=== PATIENT | male | born 1955 | race African-American/Black ===

== ENCOUNTER 2017-07-06 15:48 | Inpatient (IN) | payer OTHER ==
[2017-07-06 17:51] VITALS: BMI 24.3
--- NOTE | 2017-07-06 21:19 | HP ---
Admission [facility] Chief Complaint: I WANT TO GO TO REHAB Allergies/Adverse Reactions: Allergies Allergy/AdvReac Type Severity Reaction Status Date / Time No Known Allergies Allergy Verified 07/06/17 21:10 History of Present Illness: 62 YEARS OLD MALE WITH LONG HISTORY OF OPIATE COCAINE DEPENDENCE HAS HISTORY OF LIVER CANCER, SURGICALLY REMOVED 2010 = REMISSION, HIV BROUGHT MEDS ALONG, HYPERTENSION BPH GERD AND DEPRESSION IS ADMITTED TO REHAB Exam Limitations: No Limitations - Ebola screening Have you traveled outside of the country in the last 21 days: No Have you had contact with anyone from an Ebola affected area: No Have you been sick,other than usual withdrawal symptoms: No Do you have a fever: No - Review of Systems Constitutional: Loss of Appetite, Unintentional Wgt. Loss, Unexplained wgt Loss EENT: reports: Hearing Loss (RIGHT EAR), Dental Problems (UPPER AND LOWER) Respiratory: reports: SOB with Exertion Cardiac: reports: No Symptoms Reported GI: reports: Poor Appetite : reports: Urgency Musculoskeletal: reports: Muscle Pain Integumentary: reports: No Symptoms Reported Neuro: reports: No Symptoms reported Endocrine: reports: No Symptoms Reported Hematology: reports: No Symptoms Reported Psychiatric: reports: Judgement Intact, Mood/Affect Appropiate, Orientated x3 Other Systems: Reviewed and Negative Patient History - Patient Medical History Hx Anemia: No Hx Asthma: No Hx Chronic Obstructive Pulmonary Disease (COPD): No Hx Cancer: Yes (LIVER) Hx Cardiac Disorders: No Hx Congestive Heart Failure: No Hx Hypertension: Yes Hx Hypercholesterolemia: No Hx Pacemaker: No HX Cerebrovascular Accident: No Hx Seizures: No Hx Dementia: No Hx Diabetes: No Hx Gastrointestinal Disorders: Yes Hx Liver Disease: Yes (HISTORY OF LIVER CA) Hx Genitourinary Disorders: Yes Hx Sexually Transmitted Disorders: Yes Hx Renal Disease (ESRD): No Hx Thyroid Disease: No Hx Human Immunodeficiency Virus (HIV): Yes Hx Hepatitis C: No Hx Depression: Yes Hx Suicide Attempt: No Hx Bipolar Disorder: No Hx Schizophrenia: No - Patient Surgical History Past Surgical History: Yes Hx Neurologic Surgery: No Hx Cataract Extraction: No Hx Cardiac Surgery: No Hx Lung Surgery: No Hx Breast Surgery: No Hx Breast Biopsy: No Hx Abdominal Surgery: Yes (LIVER CA) Hx Appendectomy: No Hx Cholecystectomy: No Hx Genitourinary Surgery: No Hx Orthopedic Surgery: No Anesthesia Reaction: No - PPD History Previous Implant?: Yes Documented Results: Negative w/proof Implanted On Prior [facility] Admission?: No PPD to be Administered?: Yes - Smoking Cessation Smoking history: Never smoked Have you smoked in the past 12 months: No Cigars Per Day: 0 Hx Chewing Tobacco Use: No Initiated information on smoking cessation: No - Substance & Tx. History Hx Alcohol Use: No Hx Substance Use: Yes Substance Use Type: Cocaine, Heroin Hx Substance Use Treatment: Yes (06/2017 [facility]) - Substances Abused Heroin Route: Smoking Frequency: Daily Amount used: 4 BAGS Age of first use: 61 Date of Last Use: 06/30/17 Family Disease History - Family Disease History Family Disease History: CA: Mother (), Other: Father (NO CONTACT), Mother Other Family History: ONLY CHILD Admission Physical Exam S - Vital Signs Vital Signs: Vital Signs - 24 hr 07/06/17 17:49 Temperature 97.7 F Pulse Rate 80 Respiratory 18 Rate Blood Pressure 118/74 - Physical General Appearance: Yes: No Apparent Distress, Appropriately Dressed, Thin HEENTM: Yes: Hearing grossly Normal, Normal ENT Inspection, Normocephalic, Normal Voice, Other (RIGHT EAR HARD OF HEARING) Respiratory: Yes: Chest Non-Tender, No Respiratory Distress, No Accessory Muscle Use Neck: Yes: Supple, Trachea in good position Breast: Yes: Breasts Symetrical Cardiology: Yes: Regular Rhythm, Regular Rate, S1, S2 Abdominal: Yes: Normal Bowel Sounds, Non Tender, Soft Genitourinary: Yes: Within Normal Limits Back: Yes: Normal Inspection Musculoskeletal: Yes: full range of Motion, Gait Steady Neurological: Yes: Fully Oriented, Alert, Motor Strength 5/5, Normal Mood/Affect , Normal Response Integumentary: Yes: Warm Lymphatic: Yes: Within Normal Limits - Diagnostic (1) Opioid dependence with withdrawal Current Visit: Yes Status: Acute (2) HIV (human immunodeficiency virus infection) Current Visit: Yes Status: Chronic (3) Hypertension Current Visit: Yes Status: Chronic Qualifiers: Hypertension type: essential hypertension Qualified Code(s): I10 - Essential (primary) hypertension; I10 - Essential (primary) hypertension; I10 - Essential (primary) hypertension (4) BPH (benign prostatic hyperplasia) Current Visit: Yes Status: Chronic Qualifiers: Lower urinary tract symptom presence: symptoms present Lower urinary tract symptom detail: post-void dribbling Qualified Code(s): N40.1 - Benign prostatic hyperplasia with lower urinary tract symptoms; N40.1 - Benign prostatic hyperplasia with lower urinary tract symptoms; N39.43 - Post-void dribbling; N39.43 - Post-void dribbling (5) GERD (gastroesophageal reflux disease) Current Visit: Yes Status: Chronic Qualifiers: Esophagitis presence: without esophagitis Qualified Code(s): K21.9 - Gastro-esophageal reflux disease without esophagitis; K21.9 - Gastro- esophageal reflux disease without esophagitis; K21.9 - Gastro-esophageal reflux disease without esophagitis (6) Weight loss Current Visit: Yes Status: Acute (7) Wax in ear Current Visit: Yes Status: Chronic Comment: LEFT EAR (8) Chronic bronchitis Current Visit: Yes Status: Resolved Qualifiers: Chronic bronchitis type: simple Qualified Code(s): J41.0 - Simple chronic bronchitis; J41.0 - Simple chronic bronchitis; J41.0 - Simple chronic bronchitis; J41.0 - Simple chronic bronchitis Cleared for Admission [facility] - Detox or Rehab [facility] Level of Care: Observation Bed Detox Regimen/Protocol: Not Applicable Claeared for Rehab Admission: Yes [facility] Breath Alcohol Content Breath Alcohol Content: 0 Urine Drug Screen - Results Drug Screen Negative: Yes Inpatient Rehab Admission - Initial Determination Are CD services needed?: Yes Free of communicable disease: Yes Not in need of hospitalization: Yes - Rehab Admission Criteria Previous failed treatment: Yes Poor recovery environment: Yes Comorbidities: Yes Lacks judgement: No Patient is meeting Inpatient Rehab admission criteria:: Yes
[2017-07-06] MEDS ORDERED: MAGNESIUM HYDROX 2400MG/30ML ORAL SUSPENSION 30 ML CUP PO PRN (21:29)
[2017-07-06] MEDS ORDERED: guaiFENesin/D-METHORPHAN HB 10 ML UNIT-DOSE CUPS PO PRN (21:29)
[2017-07-06] MEDS ORDERED: MAG HYDROX/AL HYDROX/SIMETH 30 ML UNIT-DOSE CUP PO PRN (21:29)
[2017-07-06] MEDS ORDERED: MAGNESIUM CITRATE 300 ML BOTTLE PO PRN (21:29)
[2017-07-06] MEDS ORDERED: P-EPHED 60MG/TRIPROLIDI 2.5MG TABLET PO PRN (21:29)
[2017-07-06] MEDS ORDERED: ALBUTEROL SO4 18 GM HFA INHALER IH PRN (21:32)
[2017-07-07] MEDS: THIAMINE HCL 100 MG TABLET (FP) PO SCH ×2 (01:34→21:36)
[2017-07-07] MEDS: CARBAMIDE PEROXIDE 6.5% OTIC 15 ML BOTTLE AS SCH ×3 (01:34→21:35)
[2017-07-07 01:48] LABS: URINE APPEARANCE CLEAR; URINE BILIRUBIN NEGATIVE (NEGATIVE); URINE BLOOD NEGATIVE (NEGATIVE); URINE COLOR LTYELLOW; URINE GLUCOSE (UA) NEGATIVE (NEGATIVE); URINE KETONE NEGATIVE (NEGATIVE); URINE NITRITE NEGATIVE (NEGATIVE); URINE PROTEIN NEGATIVE (NEGATIVE); URINE UROBILINOGEN NEGATIVE mg/dL (0.2-1.0)
[2017-07-07 09:17] LABS: URINE LEUK ESTERASE Negative (NEGATIVE)
--- NOTE | 2017-07-07 09:22 | EKG ---
Test Reason : Blood Pressure : / mmHG Vent. Rate : 064 BPM Atrial Rate : 064 BPM P-R Int : 132 ms QRS Dur : 078 ms QT Int : 416 ms P-R-T Axes : 052 -62 003 degrees QTc Int : 429 ms NORMAL SINUS RHYTHM LEFT ANTERIOR FASCICULAR BLOCK NONSPECIFIC T WAVE ABNORMALITY ABNORMAL ECG NO PREVIOUS ECGS AVAILABLE Confirmed by ROGELIO ZUÑIGA MD ([id number]) on 07/07/2017 9:22:32 AM Referred By: Confirmed By:ROGELIO ZUÑIGA MD
[2017-07-07] MEDS: LISINOPRIL 10 MG TABLET (FP) PO SCH (10:37)
[2017-07-07] MEDS: PRENATAL VITAMINS W/ FOLIC ACID TABLET (FP) PO SCH (10:37)
[2017-07-07] MEDS: VILAZODONE HYDROCHLORIDE PO SCH (11:28)
[2017-07-07] MEDS: PATIENT'S OWN MEDICATION (NON-FORMULARY) (Omeprazole [Omeprazole] 40 MG) PO SCH (11:28)
[2017-07-07] MEDS: TAMSULOSIN HCL PO SCH (11:32)
--- NOTE | 2017-07-07 11:42 | HP ---
Psychiatrist Admission - Data Date of interview: 07/07/17 Admission source: [facility]. Identifying data: This is the first 5N inpatient rehabilitaiton admission for this 62 year old Medical History: HIV+, Stage 4 Colon Ca(in remission),HTN, [place] 2010, Enlarged Prostate. Psychiatric History: Patient reports he has been in the treatment for depression for the last 2 years, sees the psychiatric in one of the [facility] and currently on Vibryd 40 mg po daily. Denies history of psychiatric hospitalizations. Physical/Sexual Abuse/Trauma History: Denies history of abuse. Vital Signs: Vital Signs - 24 hr 07/06/17 07/07/17 07/07/17 17:49 01:09 03:30 Temperature 97.7 F 98.3 F Pulse Rate 80 70 Respiratory 18 18 16 Rate Blood Pressure 118/74 116/81 07/07/17 07:39 Temperature 97.2 F L Pulse Rate 75 Respiratory 18 Rate Blood Pressure 112/74 Allergies/Adverse Reactions: Allergies Allergy/AdvReac Type Severity Reaction Status Date / Time No Known Allergies Allergy Verified 07/06/17 22:19 Date of last physical exam: 07/06/17 Concur with the findings of this exam: Yes - Substance Abuse/Tx History Hx Alcohol Use: No Hx Substance Use: Yes Substance Use Type: Cocaine, Heroin (started at age of 61, sniffs 4 bags a day) Mental Status Exam - Mental Status Exam Alert and Oriented to: Time, Place, Person Cognitive Function: Grossly Intact Patient Appearance: Unkempt Mood: Anxious, Irritable Affect: Mood Congruent Patient Behavior: Restless Speech Pattern: Clear Voice Loudness: Normal Thought Process: Goal Oriented Thought Disorder: Not Present Hallucinations: Denies Suicidal Ideation: Denies Homicidal Ideation: Denies Insight/Judgement: Fair Sleep: Fair Appetite: Fair Muscle strength/Tone: Normal Gait/Station: Normal Psychiatric Findings - Problem List (Holiday 1, 2,3) (1) Opioid dependence Current Visit: Yes Status: Acute (2) Cocaine dependence Current Visit: Yes Status: Acute (3) MDD (major depressive disorder) Current Visit: Yes Status: Acute - Initial Treatment Plan Initial Treatment Plan: willl continue his current medications, monitor progress.
[2017-07-07 15:02] LABS: ALBUMIN 3.7 g/dl (3.4-5.0); ANION GAP 13 (8-16); CALCIUM 8.8 mg/dL (8.5-10.1); CO2 19 mmol/L (21-32); CREATININE 1.4 mg/dL (0.7-1.3); GLUCOSE,RANDOM 120 mg/dL (74-106); SGPT/ALT 25 U/L (12-78)
[2017-07-07 15:04] LABS: ALK PHOS 68 U/L (45-117); BILIRUBIN,TOTAL 0.5 mg/dL (0.2-1.0); TOT PROT 7.9 g/dl (6.4-8.2)
[2017-07-07 15:06] LABS: SGOT/AST 19 U/L (15-37)
[2017-07-07] MEDS: diphenhydrAMINE HCL 50 MG CAPSULE PO PRN (21:36)
[2017-07-08] MEDS: PRENATAL VITAMINS W/ FOLIC ACID TABLET (FP) PO SCH (10:46)
[2017-07-08] MEDS: CARBAMIDE PEROXIDE 6.5% OTIC 15 ML BOTTLE AS SCH ×2 (10:46→21:43)
[2017-07-08] MEDS: PATIENT'S OWN MEDICATION (NON-FORMULARY) (Omeprazole [Omeprazole] 40 MG) PO SCH (10:47)
[2017-07-08] MEDS: VILAZODONE HYDROCHLORIDE PO SCH (10:47)
[2017-07-08] MEDS: LISINOPRIL 10 MG TABLET (FP) PO SCH (10:48)
[2017-07-08] MEDS: TAMSULOSIN HCL PO SCH (10:48)
[2017-07-08] MEDS: LOPERAMIDE HCL 2 MG CAPSULE PO PRN ×2 (15:00→21:36)
[2017-07-08] MEDS: THIAMINE HCL 100 MG TABLET (FP) PO SCH (21:36)
[2017-07-09] MEDS: CARBAMIDE PEROXIDE 6.5% OTIC 15 ML BOTTLE AS SCH ×2 (10:28→21:28)
[2017-07-09] MEDS: VILAZODONE HYDROCHLORIDE PO SCH (10:28)
[2017-07-09] MEDS: LISINOPRIL 10 MG TABLET (FP) PO SCH ×2 (10:28→10:33)
[2017-07-09] MEDS: PRENATAL VITAMINS W/ FOLIC ACID TABLET (FP) PO SCH (10:28)
[2017-07-09] MEDS: TAMSULOSIN HCL PO SCH (10:28)
[2017-07-09] MEDS: PATIENT'S OWN MEDICATION (NON-FORMULARY) (Omeprazole [Omeprazole] 40 MG) PO SCH (10:29)
[2017-07-09] MEDS: diphenhydrAMINE HCL 50 MG CAPSULE PO PRN (21:29)
[2017-07-09] MEDS: THIAMINE HCL 100 MG TABLET (FP) PO SCH (21:29)
[2017-07-10] MEDS ORDERED: RANITIDINE HCL 150 MG TABLET (FP) PO SCH (10:00)
[2017-07-10] MEDS: LISINOPRIL 10 MG TABLET (FP) PO SCH (10:13)
[2017-07-10] MEDS: CARBAMIDE PEROXIDE 6.5% OTIC 15 ML BOTTLE AS SCH ×2 (10:13→21:49)
[2017-07-10] MEDS: PRENATAL VITAMINS W/ FOLIC ACID TABLET (FP) PO SCH (10:13)
[2017-07-10] MEDS: TAMSULOSIN HCL PO SCH (10:14)
[2017-07-10] MEDS: VILAZODONE HYDROCHLORIDE PO SCH (10:15)
[2017-07-10] MEDS: THIAMINE HCL 100 MG TABLET (FP) PO SCH (21:48)
[2017-07-10] MEDS: diphenhydrAMINE HCL 50 MG CAPSULE PO PRN (21:49)
[2017-07-11] MEDS: LISINOPRIL 10 MG TABLET (FP) PO SCH (09:58)
[2017-07-11] MEDS: PRENATAL VITAMINS W/ FOLIC ACID TABLET (FP) PO SCH (09:58)
[2017-07-11] MEDS: TAMSULOSIN HCL PO SCH (09:59)
[2017-07-11] MEDS: CARBAMIDE PEROXIDE 6.5% OTIC 15 ML BOTTLE AS SCH (09:59)
[2017-07-11] MEDS: VILAZODONE HYDROCHLORIDE PO SCH (10:00)
[2017-07-11] MEDS: ACETAMINOPHEN 325 MG TABLET (FP) PO PRN (10:01)
[2017-07-11] MEDS: MENTHOL/PHENOL 1 EACH UD MM PRN ×2 (10:01→21:30)
[2017-07-11] MEDS: diphenhydrAMINE HCL 50 MG CAPSULE PO PRN (21:29)
[2017-07-11] MEDS: THIAMINE HCL 100 MG TABLET (FP) PO SCH (21:29)
[2017-07-12] MEDS: TAMSULOSIN HCL PO SCH (10:30)
[2017-07-12] MEDS: PRENATAL VITAMINS W/ FOLIC ACID TABLET (FP) PO SCH (10:30)
[2017-07-12] MEDS: LISINOPRIL 10 MG TABLET (FP) PO SCH (10:30)
[2017-07-12] MEDS: VILAZODONE HYDROCHLORIDE PO SCH (10:31)
[2017-07-12] MEDS: ACETAMINOPHEN 325 MG TABLET (FP) PO PRN (10:33)
[2017-07-12] MEDS: diphenhydrAMINE HCL 50 MG CAPSULE PO PRN (21:31)
[2017-07-12] MEDS: THIAMINE HCL 100 MG TABLET (FP) PO SCH (21:31)
[2017-07-13] MEDS: diphenhydrAMINE HCL 50 MG CAPSULE PO PRN ×2 (01:08→21:40)
[2017-07-13] MEDS: PRENATAL VITAMINS W/ FOLIC ACID TABLET (FP) PO SCH (10:02)
[2017-07-13] MEDS: TAMSULOSIN HCL PO SCH (10:02)
[2017-07-13] MEDS: VILAZODONE HYDROCHLORIDE PO SCH (10:03)
[2017-07-13] MEDS: LISINOPRIL 10 MG TABLET (FP) PO SCH (10:04)
[2017-07-13] MEDS: ACETAMINOPHEN 325 MG TABLET (FP) PO PRN ×2 (10:05→21:42)
[2017-07-13] MEDS: MENTHOL/PHENOL 1 EACH UD MM PRN ×2 (10:05→21:43)
[2017-07-13] MEDS: THIAMINE HCL 100 MG TABLET (FP) PO SCH (21:40)
[2017-07-14] MEDS: PRENATAL VITAMINS W/ FOLIC ACID TABLET (FP) PO SCH (10:44)
[2017-07-14] MEDS: TAMSULOSIN HCL PO SCH (10:45)
[2017-07-14] MEDS: LISINOPRIL 10 MG TABLET (FP) PO SCH (10:45)
[2017-07-14] MEDS: VILAZODONE HYDROCHLORIDE PO SCH (10:47)
[2017-07-14] MEDS: THIAMINE HCL 100 MG TABLET (FP) PO SCH (21:48)
[2017-07-14] MEDS: ACETAMINOPHEN 325 MG TABLET (FP) PO PRN (21:49)
[2017-07-14] MEDS: diphenhydrAMINE HCL 50 MG CAPSULE PO PRN (21:49)
[2017-07-15 09:03] LABS: BASOPHIL 0.3 % (0-2.0); MCH 35.3 pg (25.7-33.7); WHITE BLOOD COUNT 6.5 K/mm3 (4.0-10.0)
[2017-07-15 09:06] LABS: EOSINOPHIL 0.9 % (0-4.5); MCHC 33.3 g/dl (32.0-35.9); MEAN CELL VOLUME 105.9 fl (80-96); MEAN PLT VOLUME 6.9 fl (7.5-11.1); PLATELET COUNT 309 K/MM3 (134-434)
[2017-07-15] MEDS: LISINOPRIL 10 MG TABLET (FP) PO SCH (10:37)
[2017-07-15] MEDS: PRENATAL VITAMINS W/ FOLIC ACID TABLET (FP) PO SCH (10:37)
[2017-07-15] MEDS: VILAZODONE HYDROCHLORIDE PO SCH (10:37)
[2017-07-15] MEDS: TAMSULOSIN HCL PO SCH (10:37)
[2017-07-15 10:45] LABS: MACROCYTOSIS 2+
[2017-07-15 11:03] LABS: ALBUMIN 3.8 g/dl (3.4-5.0); ALK PHOS 81 U/L (45-117); ANION GAP 9 (8-16); BILIRUBIN,TOTAL 0.3 mg/dL (0.2-1.0); CALCIUM 9.3 mg/dL (8.5-10.1); CO2 20 mmol/L (21-32); CREATININE 1.7 mg/dL (0.7-1.3); GLUCOSE,RANDOM 92 mg/dL (74-106); SGOT/AST 13 U/L (15-37); SGPT/ALT 23 U/L (12-78); TOT PROT 8.5 g/dl (6.4-8.2)
[2017-07-15] MEDS: diphenhydrAMINE HCL 50 MG CAPSULE PO PRN (21:42)
[2017-07-15] MEDS: THIAMINE HCL 100 MG TABLET (FP) PO SCH (21:42)
[2017-07-15] MEDS: ACETAMINOPHEN 325 MG TABLET (FP) PO PRN (21:44)
[2017-07-15] MEDS: MENTHOL/PHENOL 1 EACH UD MM PRN (21:45)
[2017-07-16] MEDS: TAMSULOSIN HCL PO SCH (10:38)
[2017-07-16] MEDS: PRENATAL VITAMINS W/ FOLIC ACID TABLET (FP) PO SCH (10:39)
[2017-07-16] MEDS: LISINOPRIL 10 MG TABLET (FP) PO SCH (10:39)
[2017-07-16] MEDS: VILAZODONE HYDROCHLORIDE PO SCH (10:39)
[2017-07-16] MEDS: LOPERAMIDE HCL 2 MG CAPSULE PO PRN (10:41)
[2017-07-16] MEDS: diphenhydrAMINE HCL 50 MG CAPSULE PO PRN (21:45)
[2017-07-16] MEDS: THIAMINE HCL 100 MG TABLET (FP) PO SCH (21:45)
[2017-07-16] MEDS: ACETAMINOPHEN 325 MG TABLET (FP) PO PRN (21:45)
[2017-07-17] MEDS: TAMSULOSIN HCL PO SCH (10:24)
[2017-07-17] MEDS: LISINOPRIL 10 MG TABLET (FP) PO SCH (10:24)
[2017-07-17] MEDS: PRENATAL VITAMINS W/ FOLIC ACID TABLET (FP) PO SCH (10:24)
[2017-07-17] MEDS: VILAZODONE HYDROCHLORIDE PO SCH (12:45)
[2017-07-17] MEDS ORDERED: VILAZODONE HYDROCHLORIDE 20 MG TABLET PO SCH (13:24)
[2017-07-17] MEDS: VILAZODONE HYDROCHLORIDE 20 MG TABLET PO SCH (16:19)
[2017-07-17] MEDS: diphenhydrAMINE HCL 50 MG CAPSULE PO PRN (21:28)
[2017-07-17] MEDS: THIAMINE HCL 100 MG TABLET (FP) PO SCH (21:28)
[2017-07-17] MEDS: ACETAMINOPHEN 325 MG TABLET (FP) PO PRN (21:29)
[2017-07-18] MEDS: PRENATAL VITAMINS W/ FOLIC ACID TABLET (FP) PO SCH (10:34)
[2017-07-18] MEDS: TAMSULOSIN HCL PO SCH (10:34)
[2017-07-18] MEDS: LISINOPRIL 10 MG TABLET (FP) PO SCH (10:34)
[2017-07-18] MEDS: VILAZODONE HYDROCHLORIDE 20 MG TABLET PO SCH (10:35)
[2017-07-18] MEDS: THIAMINE HCL 100 MG TABLET (FP) PO SCH (21:33)
[2017-07-18] MEDS: ACETAMINOPHEN 325 MG TABLET (FP) PO PRN (21:33)
[2017-07-18] MEDS: diphenhydrAMINE HCL 50 MG CAPSULE PO PRN (21:34)
[2017-07-19] MEDS: PRENATAL VITAMINS W/ FOLIC ACID TABLET (FP) PO SCH (10:25)
[2017-07-19] MEDS: TAMSULOSIN HCL PO SCH (10:25)
[2017-07-19] MEDS: LISINOPRIL 10 MG TABLET (FP) PO SCH (10:28)
[2017-07-19] MEDS: VILAZODONE HYDROCHLORIDE 20 MG TABLET PO SCH (13:05)
[2017-07-19] MEDS: VILAZODONE HYDROCHLORIDE 40 MG TABLET PO SCH (13:23)
[2017-07-19] MEDS: diphenhydrAMINE HCL 50 MG CAPSULE PO PRN (21:42)
[2017-07-19] MEDS: THIAMINE HCL 100 MG TABLET (FP) PO SCH (21:42)
[2017-07-19] MEDS: ACETAMINOPHEN 325 MG TABLET (FP) PO PRN (21:43)
[2017-07-20 07:15] VITALS: BP 108/74; PULSE 83; TEMP 98
[2017-07-20] MEDS: PRENATAL VITAMINS W/ FOLIC ACID TABLET (FP) PO SCH (09:49)
[2017-07-20] MEDS: LISINOPRIL 10 MG TABLET (FP) PO SCH (09:49)
[2017-07-20] MEDS: VILAZODONE HYDROCHLORIDE 40 MG TABLET PO SCH (09:49)
--- NOTE | 2017-07-20 09:49 | PN ---
Psychiatric Progress Note Vital Signs: Vital Signs Period Temp Pulse Resp BP Sys/Jackson Pulse Ox Last 24 Hr 98.0 F 83-90 18-18 108-109/66-74 Date of Session: 07/20/17 Chief Complaint:: discharge visit HPI: Patient has addressed cocaine, opioid dependence comorbid MDD. ROS: HIV+, Stage 4 Colon Ca(in remission),HTN, [place] 2010, Enlarged Prostate medically managed. Current Medications: Active Medications Generic Name Dose Route Start Last Admin Trade Name Freq PRN Reason Stop Dose Admin Acetaminophen 650 mg 07/06/17 21:29 07/19/17 21:43 Tylenol - PO 650 mg Q4H PRN Administration PAIN Al Hydroxide/Mg Hydroxide 30 ml 07/06/17 21:29 Mylanta Oral Suspension - PO Q6H PRN DYSPEPSIA Albuterol Sulfate 2 puff 07/06/17 21:32 Ventolin Hfa Inhaler - IH Q4H PRN SHORT OF BREATH/WHEEZING Diphenhydramine HCl 50 mg 07/06/17 21:29 07/19/17 21:42 Benadryl - PO 50 mg HSMR1 PRN Administration INSOMNIA Eucalyptus/Menthol/Phenol/Sorbitol 1 each 07/06/17 21:29 07/15/17 21:45 Cepastat Lozenge - MM 1 each Q4H PRN Administration SORE THROAT Guaifenesin 10 ml 07/06/17 21:29 Robitussin Dm - PO Q6H PRN COUGH Lisinopril 10 mg 07/07/17 10:00 07/19/17 10:28 Prinivil PO 10 mg DAILY JOSELUIS Administration Loperamide HCl 4 mg 07/06/17 21:29 07/16/17 10:41 Imodium - PO 4 mg Q6H PRN Administration DIARRHEA Magnesium Citrate 300 ml 07/06/17 21:29 Citroma - PO Q48H PRN CONSTIPATION Magnesium Hydroxide 30 ml 07/06/17 21:29 Milk Of Magnesia - PO DAILY PRN CONSTIPATION Non-Formulary Medication 1 each 07/07/17 10:00 07/19/17 10:25 Abacavir/Dolutegravir/Lamivudi [Triumeq Tablet] PO 1 each DAILY JOSELUIS Administration Non-Formulary Medication 1 tab 07/07/17 10:00 07/19/17 10:25 Sulfamethoxazole/Trimethoprim [Bactrim Ds -] PO 1 tab DAILY JOSELUIS Administration Non-Formulary Medication 0.4 mg 07/07/17 10:00 07/19/17 10:25 Tamsulosin Hcl [Flomax -] PO 0.4 mg DAILY JOSELUIS Administration Multivit/Folic Acid/Iron 1 tab 07/07/17 10:00 07/19/17 10:25 Vitamins ([facility]) - PO 1 tab DAILY JOSELUIS Administration Pseudoephedrine/Triprolidine 1 combo 07/06/17 21:29 Actifed - PO TID PRN NASAL CONGESTION Ranitidine HCl 150 mg 07/10/17 10:00 Zantac - PO BID JOSELUIS Thiamine HCl 100 mg 07/06/17 22:00 07/19/17 21:42 Vitamin B1 - PO 100 mg HS JOSELUIS Administration Vilazodone HCl 40 mg 07/19/17 13:00 07/19/17 13:23 Viibryd - PO 40 mg DAILY JOSELUIS Administration Current Side Effect: No Lab tests ordered: No Lab tests reviewed: Yes Provider note:: Patient has completed today his treatment and met his goals, will continue to address his issues at [facility], where he will f/u as well with his psychiatrist . He focused on importance of changing attitudes, utilization of supports to prevent relapses, patient is motivated to continue maintain absitnence. Vibriid well tolerated, scripts provided for 30 days, patient is stable for discharge today. Total face to face time:: 20 Mental Status Exam - Mental Status Exam Alert and Oriented to: Time, Place, Person Cognitive Function: Good Patient Appearance: Well Groomed Mood: Hopeful Affect: Appropriate, Mood Congruent Patient Behavior: Appropriate, Cooperative Speech Pattern: Clear, Appropriate Voice Loudness: Normal Thought Process: Intact, Goal Oriented Thought Disorder: Not Present Hallucinations: Denies Suicidal Ideation: Denies Homicidal Ideation: Denies Insight/Judgement: Fair Sleep: Fair Appetite: Good Muscle strength/Tone: Normal Gait/Station: Normal
[2017-07-20] MEDS: ACETAMINOPHEN 325 MG TABLET (FP) PO PRN (09:50)
[2017-07-20] MEDS: TAMSULOSIN HCL PO SCH (09:50)
== END 2017-07-20 10:50 | disposition home or self-care (01) | DRG 772 ==
LOC: YASAS 15:48 → Y5N 22:24
PROVIDERS: ADMIT Psychiatry & Neurology Psychiatry; ATTEND Psychiatry & Neurology Psychiatry
PROC: HZ42ZZZ Group Counseling for Substance Abuse Treatment, Cognitive-Behavioral (ICD-10-PCS; principal; 2017-07-06)
DX: F11.20 Opioid dependence, uncomplicated (principal); F14.20 Cocaine dependence, uncomplicated; F33.9 Major depressive disorder, recurrent, unspecified; Z21 Asymptomatic human immunodeficiency virus [HIV] infection status; Z85.05 Personal history of malignant neoplasm of liver; I10 Essential (primary) hypertension; I25.2 Old myocardial infarction; N40.0 Benign prostatic hyperplasia without lower urinary tract symptoms; K21.9 Gastro-esophageal reflux disease without esophagitis; H61.22 Impacted cerumen, left ear; J41.0 Simple chronic bronchitis; Z87.898 Personal history of other specified conditions
CPT/HCPCS: 36415; 80053; 81003; 85025; 86593; 93005; 93010